=== PATIENT | male | born 1960 | race Hispanic/Latino ===

== ENCOUNTER 2017-10-14 12:26 | Inpatient (IN) | payer MEDICARE ==
[~2017-10-14] VITALS: Ht 172.7 cm; Wt 82.3 kg
[2017-10-14 12:59] LABS: BASOPHILS % (AUTO) 0.4 % (0.0-5.0); EOSINOPHILS % (AUTO) 1.9 % (0.0-8.0); HEMATOCRIT 32.4 % (42-54); LYMPHOCYTES % (AUTO) 33.8 % (21.0-51.0); MEAN CORPUSCULAR HEMOGLOBIN 31.3 pg (27.0-33.0); MEAN CORPUSCULAR HGB CONC 34.8 g/dL (32.0-36.0); MEAN CORPUSCULAR VOLUME 89.9 fL (79-99); MONOCYTES % (AUTO) 7.8 % (3.0-13.0); NEUTROPHILS % (AUTO) 56.1 % (40.0-77.0); PLATELET COUNT (AUTO) 182 K/uL (130-400); RED BLOOD CELL COUNT(AUTO) 3.61 MIL/uL (4.50-6.20); RED CELL DISTRIBUTION WIDTH 14.4 % (11.0-15.5); WHITE BLOOD COUNT (AUTO) 5.6 K/uL (4.8-10.8)
[2017-10-14 13:06] LABS: CREATININE 1.1 mg/dL (0.5-1.5); POTASSIUM 4.9 mmol/L (3.5-5.1)
[2017-10-14 13:11] LABS: ALBUMIN 3.4 g/dL (3.5-5.0); BILIRUBIN,TOTAL 0.4 mg/dL (0.2-1.0); TOTAL PROTEIN, SERUM 7.4 g/dL (6.0-8.3)
[2017-10-14] MEDS ORDERED: ASPIRIN 325 MG TABLET ONE (13:49)
[2017-10-14] MEDS: NITROGLYCERIN 1GM/1 INCH PACKET TD SCH ×2 (14:00→20:46)
[2017-10-14] MEDS ORDERED: MAG HYDROX/AL HYDROX/SIMETH ES 30 ML SUSP UDCUP PO PRN (14:00)
[2017-10-14] MEDS ORDERED: NITROGLYCERIN 0.4 MG SL TAB SL PRN (14:00)
[2017-10-14] MEDS ORDERED: POTASSIUM CHLORIDE 20 MEQ ERTAB PO PRN (14:00)
[2017-10-14] MEDS ORDERED: ACETAMINOPHEN-CODEINE 300/30MG TAB PO PRN ×2 (14:00)
[2017-10-14] MEDS ORDERED: GUAIFENESIN-DM 200/20 MG 10 ML PO PRN (14:00)
[2017-10-14] MEDS ORDERED: POTASSIUM CHLORIDE 20MEQ/100ML 100 ML IV PRN (14:00)
[2017-10-14] MEDS ORDERED: MORPHINE SULFATE 4 MG/1ML SYG IV PRN ×2 (14:00)
[2017-10-14] MEDS ORDERED: LIDOCAINE HCL-MPF 1% 2ML VIAL IVP PRN (14:00)
[2017-10-14] MEDS ORDERED: POTASSIUM CHLORIDE 10% ELIXIR 20 MEQ/15 ML UDCUP PO PRN (14:00)
[2017-10-14] MEDS ORDERED: ONDANSETRON HCL MDV 20ML 2 MG/ML VIAL IV PRN (14:00)
[2017-10-14] MEDS ORDERED: LACTULOSE 20 GM/30 ML UDCUP PO PRN (14:00)
[2017-10-14] MEDS ORDERED: ACETAMINOPHEN 325 MG TAB PO PRN (14:00)
[2017-10-14] MEDS ORDERED: NITROGLYCERIN 1GM/1 INCH PACKET TD ONE (14:19)
[2017-10-14 15:03] LABS: CREATINE KINASE MB 2.3 ng/mL (0.5-3.6); CREATINE KINASE, TOTAL 266 U/L (21-232); MYOGLOBIN 57 ng/mL (10-92); TROPONIN I < 0.04 ng/mL (0.00-0.06)
[2017-10-14 15:36] VITALS: BP 165/89
[2017-10-14] MEDS ORDERED: ROSU10TA27 PO (15:44)
[2017-10-14] MEDS ORDERED: SITA100T12 PO (15:44)
[2017-10-14] MEDS ORDERED: GABA-529 PO (15:44)
[2017-10-14] MEDS ORDERED: ASPI-555 PO (15:44)
[2017-10-14] MEDS ORDERED: METF500T6 PO (15:44)
[2017-10-14] MEDS ORDERED: LORA10TA7 PO (15:44)
[2017-10-14] MEDS ORDERED: VALS1TAB75 PO (15:44)
[2017-10-14] MEDS ORDERED: OMEP20CA10 PO (15:44)
[2017-10-14 16:21] VITALS: BP 190/93
[2017-10-14] MEDS: HYDRALAZINE HCL 20 MG/ML VIAL IV PRN (19:07)
[2017-10-14 19:40] VITALS: BP 139/69
[2017-10-14] MEDS: FAMOTIDINE 20MG TAB 20 MG TAB PO SCH (20:46)
[2017-10-14] MEDS: METOPROLOL TARTRATE 25 MG TAB PO SCH (20:46)
[2017-10-14 23:15] VITALS: BP 133/77
[2017-10-15 00:33] LABS: INR 0.95 (0.85-1.15)
[2017-10-15 00:47] LABS: CREATINE KINASE MB 1.6 ng/mL (0.5-3.6); CREATINE KINASE, TOTAL 84 U/L (21-232); MYOGLOBIN 61 ng/mL (10-92); TROPONIN I < 0.04 ng/mL (0.00-0.06)
[2017-10-15 03:48] VITALS: BP 125/75
[2017-10-15] MEDS: ACETAMINOPHEN 325 MG TAB PO PRN (03:51)
[2017-10-15 04:28] LABS: HEMOGLOBIN A1C 7.1 % (4.0-6.0)
[2017-10-15 04:42] LABS: THYROID STIMULATING HORMONE 4.8 uIU/mL (0.36-3.74)
[2017-10-15] MEDS: NITROGLYCERIN 1GM/1 INCH PACKET TD SCH (06:03)
[2017-10-15] MEDS: INSULIN HUMULIN R 100 UNIT/ML 3ML SQ SCH ×4 (06:03→21:14)
[2017-10-15 07:41] VITALS: BP 123/80
[2017-10-15] MEDS: ENOXAPARIN SODIUM 40 MG/0.4 ML SYRINGE SQ SCH (08:06)
[2017-10-15] MEDS: METOPROLOL TARTRATE 25 MG TAB PO SCH ×2 (08:06→21:12)
[2017-10-15] MEDS: FAMOTIDINE 20MG TAB 20 MG TAB PO SCH ×2 (08:06→21:12)
[2017-10-15] MEDS ORDERED: ASPIRIN 325 MG TABLET PO SCH (09:00)
[2017-10-15 11:15] VITALS: BP 136/79
[2017-10-15] MEDS ORDERED: REGADENOSON 0.4 MG/5 ML PF SYG IVP SCH (13:00)
[2017-10-15 16:57] VITALS: BP 185/92
[2017-10-15] MEDS: HYDRALAZINE HCL 20 MG/ML VIAL IV PRN (17:04)
[2017-10-15 19:44] VITALS: BP 126/66
[2017-10-15] MEDS: GABAPENTIN 100 MG CAPSULE PO SCH (21:12)
[2017-10-15] MEDS: ATORVASTATIN CALCIUM 20 MG TABLET PO SCH (21:13)
[2017-10-15 23:29] VITALS: BP 139/84
[2017-10-16 03:37] VITALS: BP 129/78
[2017-10-16 04:43] LABS: CREATININE 1.1 mg/dL (0.5-1.5)
[2017-10-16 04:48] LABS: HEMATOCRIT 29.9 % (42-54); MEAN CORPUSCULAR HEMOGLOBIN 31.2 pg (27.0-33.0); MEAN CORPUSCULAR HGB CONC 34.5 g/dL (32.0-36.0); MEAN CORPUSCULAR VOLUME 90.4 fL (79-99); PLATELET COUNT (AUTO) 189 K/uL (130-400); RED BLOOD CELL COUNT(AUTO) 3.31 MIL/uL (4.50-6.20); RED CELL DISTRIBUTION WIDTH 14.8 % (11.0-15.5); WHITE BLOOD COUNT (AUTO) 5.9 K/uL (4.8-10.8)
[2017-10-16] MEDS: ACETAMINOPHEN 325 MG TAB PO PRN ×2 (06:37→14:50)
[2017-10-16] MEDS: INSULIN HUMULIN R 100 UNIT/ML 3ML SQ SCH ×4 (06:38→21:58)
[2017-10-16 07:35] VITALS: BP 133/84
[2017-10-16] MEDS: METOPROLOL TARTRATE 25 MG TAB PO SCH ×2 (08:09→21:54)
[2017-10-16] MEDS: LINAGLIPTIN 5 MG TABLET PO SCH (08:09)
[2017-10-16] MEDS: LORATADINE 10 MG TABLET PO SCH (08:09)
[2017-10-16] MEDS: ASPIRIN 81 MG EC TAB PO SCH (08:09)
[2017-10-16] MEDS: HYDROCHLOROTHIAZIDE 25 MG TABLET PO SCH (08:09)
[2017-10-16] MEDS: LOSARTAN 100 MG TABLET PO SCH (08:09)
[2017-10-16] MEDS: FAMOTIDINE 20MG TAB 20 MG TAB PO SCH ×2 (08:09→21:54)
[2017-10-16] MEDS: ENOXAPARIN SODIUM 40 MG/0.4 ML SYRINGE SQ SCH ×2 (08:10→16:28)
[2017-10-16 12:37] VITALS: BP 124/75
[2017-10-16 16:00] VITALS: BP 150/79
[2017-10-16 20:00] VITALS: BP 127/74
[2017-10-16] MEDS: ATORVASTATIN CALCIUM 20 MG TABLET PO SCH (21:54)
[2017-10-16] MEDS: GABAPENTIN 100 MG CAPSULE PO SCH (21:54)
[2017-10-16 23:58] VITALS: BP 143/75
[2017-10-17] VITALS (10 sets, daily range): BP systolic 107–145; BP diastolic 51–87
[2017-10-17] MEDS: INSULIN HUMULIN R 100 UNIT/ML 3ML SQ SCH ×2 (06:17→12:50)
[2017-10-17] MEDS ORDERED: BIVALIRUDIN 250 MG/VIAL IV ONE (07:13)
[2017-10-17] MEDS ORDERED: NITROGLYCERIN 5 MG/ML 10 ML VIAL IV ONE (07:14)
[2017-10-17] MEDS ORDERED: ISOVUE-370 50ML VIAL IV ONE (07:14)
[2017-10-17] MEDS ORDERED: HEPARIN SODIUM 1000UNIT/ML 10ML VIAL ONE (07:14)
[2017-10-17] MEDS ORDERED: IOPAMIDOL-370 100 ML VIAL IV ONE (07:14)
[2017-10-17] MEDS ORDERED: LIDOCAINE HCL-MPF 2% 5ML VIAL ONE (07:25)
[2017-10-17] MEDS ORDERED: LABETALOL HCL 5 MG/ML 20ML VIAL IV ONE (08:25)
[2017-10-17] MEDS ORDERED: SODIUM CHLORIDE 0.9% 1000ML 1,000 ML IV SCH (08:34)
[2017-10-17] MEDS ORDERED: ISOS30TA6 PO (08:43)
[2017-10-17] MEDS ORDERED: METO-391 PO (08:43)
[2017-10-17] MEDS ORDERED: TICA60TA PO (08:43)
[2017-10-17] MEDS ORDERED: NITR0.4T SL (08:43)
[2017-10-17] MEDS ORDERED: ACETAMINOPHEN-CODEINE 300/30MG TAB PO PRN (08:45)
[2017-10-17] MEDS ORDERED: NITROGLYCERIN 0.4 MG SL TAB SL PRN (08:45)
[2017-10-17] MEDS: FAMOTIDINE 20MG TAB 20 MG TAB PO SCH (09:56)
[2017-10-17] MEDS: ASPIRIN 81 MG EC TAB PO SCH (09:56)
[2017-10-17] MEDS: HYDROCHLOROTHIAZIDE 25 MG TABLET PO SCH (09:56)
[2017-10-17] MEDS: LORATADINE 10 MG TABLET PO SCH (09:56)
[2017-10-17] MEDS: LOSARTAN 100 MG TABLET PO SCH (09:56)
[2017-10-17] MEDS: METOPROLOL TARTRATE 25 MG TAB PO SCH (09:56)
[2017-10-17] MEDS: LINAGLIPTIN 5 MG TABLET PO SCH (09:57)
== END 2017-10-17 14:50 | disposition home or self-care (01) | DRG 287 ==
LOC: EDH 12:26 → OBSVTOIN 13:49 → EDHIP 13:49 → 2AH 15:38
PROVIDERS: ADMIT Internal Medicine; ATTEND Internal Medicine
PROC: 4A023N7 Measurement of Cardiac Sampling and Pressure, Left Heart, Percutaneous Approach (ICD-10-PCS; principal; 2017-10-17)
PROC: B2151ZZ Fluoroscopy of Left Heart using Low Osmolar Contrast (ICD-10-PCS; 2017-10-17)
PROC: B2111ZZ Fluoroscopy of Multiple Coronary Arteries using Low Osmolar Contrast (ICD-10-PCS; 2017-10-17)
DX: R07.9 Chest pain, unspecified (principal); E11.65 Type 2 diabetes mellitus with hyperglycemia; I25.10 Atherosclerotic heart disease of native coronary artery without angina pectoris; I25.2 Old myocardial infarction; I10 Essential (primary) hypertension; E78.5 Hyperlipidemia, unspecified; F17.210 Nicotine dependence, cigarettes, uncomplicated; Z79.82 Long term (current) use of aspirin; Z79.84 Long term (current) use of oral hypoglycemic drugs; Z79.899 Other long term (current) drug therapy; Z95.5 Presence of coronary angioplasty implant and graft; Z88.0 Allergy status to penicillin
CPT/HCPCS: 36415; 71045; 78452; 80048; 80053; 80061; 82550; 82553; 82948; 83036; 83874; 84443; 84484; 85025; 85027; 85610; 93005; 93017; 93458; 96374; A9500; C1894; J0360; J0583; J1644; J1650; J1815; J2785; J3490; Q9967

== ENCOUNTER 2017-11-10 16:34 | Emergency (ER) | payer MEDICARE ==
[~2017-11-10 16:34] MED LIST: ASPI-555 PO; GABA-529 PO; ISOS30TA6 PO; LORA10TA7 PO; METF500T6 PO; METO-391 PO; NITR0.4T SL; OMEP20CA10 PO; ROSU10TA27 PO; SITA100T12 PO; TICA60TA PO; VALS1TAB75 PO
[2017-11-10] MEDS ORDERED: IBUPROFEN 600 MG TABLET ONE (17:12)
== END 2017-11-10 17:22 | disposition home or self-care (01) ==
LOC: EDH 16:34
DX: S83.92XA Sprain of unspecified site of left knee, initial encounter (principal); I10 Essential (primary) hypertension; E11.9 Type 2 diabetes mellitus without complications; E78.5 Hyperlipidemia, unspecified; I25.10 Atherosclerotic heart disease of native coronary artery without angina pectoris; Z88.0 Allergy status to penicillin; Z72.0 Tobacco use; W08.XXXA Fall from other furniture, initial encounter; Y93.89 Activity, other specified; Y92.89 Other specified places as the place of occurrence of the external cause; Y99.8 Other external cause status
CPT/HCPCS: 73562

== ENCOUNTER 2018-06-10 13:08 | Emergency (ER) | payer MEDICARE ==
[~2018-06-10 13:08] MED LIST changes: +METF-444 PO; -METF500T6 PO
[2018-06-10 14:05] LABS: BASOPHILS % (AUTO) 0.5 % (0.0-5.0); EOSINOPHILS % (AUTO) 2.4 % (0.0-8.0); LYMPHOCYTES % (AUTO) 30.2 % (21.0-51.0); MEAN CORPUSCULAR HEMOGLOBIN 30.2 pg (27.0-33.0); MEAN CORPUSCULAR HGB CONC 33.1 g/dL (32.0-36.0); MEAN CORPUSCULAR VOLUME 91.1 fL (79-99); MONOCYTES % (AUTO) 6.5 % (3.0-13.0); NEUTROPHILS % (AUTO) 60.4 % (40.0-77.0); PLATELET COUNT (AUTO) 219 K/uL (130-400); RED BLOOD CELL COUNT(AUTO) 2.85 MIL/uL (4.50-6.20); RED CELL DISTRIBUTION WIDTH 14.3 % (11.0-15.5)
[2018-06-10 14:30] LABS: CREATININE 1.2 mg/dL (0.5-1.5); POTASSIUM 4.8 mmol/L (3.5-5.1)
[2018-06-10 14:41] LABS: ALBUMIN 2.8 g/dL (3.5-5.0); BILIRUBIN,TOTAL 0.2 mg/dL (0.2-1.0); TOTAL PROTEIN, SERUM 6.9 g/dL (6.0-8.3)
[2018-06-10] MEDS ORDERED: SODIUM CHLORIDE 0.9% 1000ML 1,000 ML IV ONE (15:08)
[2018-06-10] MEDS ORDERED: LIDOCAINE HCL 1% 20 ML VIAL ONE (15:09)
[2018-06-10] MEDS ORDERED: IOHEXOL-350 50ML VIAL IV ONE (15:28)
[2018-06-10] MEDS ORDERED: CLINDAMYCIN HCL 150 MG CAP PO SCH (17:00)
== END 2018-06-10 17:14 | disposition home or self-care (01) ==
LOC: EDH 13:08
DX: L03.221 Cellulitis of neck (principal); I10 Essential (primary) hypertension; E11.9 Type 2 diabetes mellitus without complications; I25.10 Atherosclerotic heart disease of native coronary artery without angina pectoris; E78.5 Hyperlipidemia, unspecified; Z72.0 Tobacco use
CPT/HCPCS: 36415; 70491; 80053; 83605; 85025; 87040 ×2; 99284; J7030; Q9967

== ENCOUNTER → 2018-06-17 | Outpatient (CLI) | payer MEDICARE ==
[2018-06-17 17:11] VITALS: BP 156/84
== END | disposition home or self-care (01) ==
LOC: WHH 08:28
PROVIDERS: ATTEND Podiatrist Foot & Ankle Surgery
DX: E11.621 Type 2 diabetes mellitus with foot ulcer (principal); L97.522 Non-pressure chronic ulcer of other part of left foot with fat layer exposed; S90.31XD Contusion of right foot, subsequent encounter; I25.10 Atherosclerotic heart disease of native coronary artery without angina pectoris; F32.9 Major depressive disorder, single episode, unspecified; I11.9 Hypertensive heart disease without heart failure; G89.29 Other chronic pain; F17.200 Nicotine dependence, unspecified, uncomplicated; Z88.0 Allergy status to penicillin; X58.XXXD Exposure to other specified factors, subsequent encounter
CPT/HCPCS: 11042; A4649; G0463; L3260

== ENCOUNTER → 2018-07-08 | Outpatient (CLI) | payer MEDICARE ==
[2018-07-08 13:53] VITALS: BP 183/94
== END | disposition home or self-care (01) ==
LOC: WHH 09:20
PROVIDERS: ATTEND Podiatrist Foot & Ankle Surgery
DX: E11.621 Type 2 diabetes mellitus with foot ulcer (principal); L97.522 Non-pressure chronic ulcer of other part of left foot with fat layer exposed; I25.10 Atherosclerotic heart disease of native coronary artery without angina pectoris; I11.9 Hypertensive heart disease without heart failure; E78.5 Hyperlipidemia, unspecified; G89.29 Other chronic pain; F32.9 Major depressive disorder, single episode, unspecified; F17.200 Nicotine dependence, unspecified, uncomplicated; Z88.0 Allergy status to penicillin
CPT/HCPCS: 11042; A4649

== ENCOUNTER → 2018-07-15 | Outpatient (CLI) | payer MEDICARE ==
[2018-07-15 12:57] VITALS: BP 180/87
== END | disposition home or self-care (01) ==
LOC: WHH 09:00
PROVIDERS: ATTEND Podiatrist Foot & Ankle Surgery
DX: E11.621 Type 2 diabetes mellitus with foot ulcer (principal); L97.522 Non-pressure chronic ulcer of other part of left foot with fat layer exposed; I25.10 Atherosclerotic heart disease of native coronary artery without angina pectoris; I11.9 Hypertensive heart disease without heart failure; E78.5 Hyperlipidemia, unspecified; G89.29 Other chronic pain; F32.9 Major depressive disorder, single episode, unspecified; F17.200 Nicotine dependence, unspecified, uncomplicated; Z88.0 Allergy status to penicillin
CPT/HCPCS: 11042; A4649

== ENCOUNTER → 2018-07-22 | Outpatient (CLI) | payer MEDICARE ==
[2018-07-22 09:35] VITALS: BP 159/82
== END | disposition home or self-care (01) ==
LOC: WHH 08:00
PROVIDERS: ATTEND Podiatrist Foot & Ankle Surgery
DX: E11.621 Type 2 diabetes mellitus with foot ulcer (principal); L97.522 Non-pressure chronic ulcer of other part of left foot with fat layer exposed; I25.10 Atherosclerotic heart disease of native coronary artery without angina pectoris; I11.9 Hypertensive heart disease without heart failure; E78.5 Hyperlipidemia, unspecified; G89.29 Other chronic pain; F32.9 Major depressive disorder, single episode, unspecified; F17.200 Nicotine dependence, unspecified, uncomplicated; Z88.0 Allergy status to penicillin
CPT/HCPCS: 11042; A6207

== ENCOUNTER → 2018-07-29 | Outpatient (CLI) | payer MEDICARE ==
[2018-07-29 09:46] VITALS: BP 170/95
== END | disposition home or self-care (01) ==
LOC: WHH 08:00
PROVIDERS: ATTEND Podiatrist Foot & Ankle Surgery
DX: E11.621 Type 2 diabetes mellitus with foot ulcer (principal); L97.522 Non-pressure chronic ulcer of other part of left foot with fat layer exposed; I25.10 Atherosclerotic heart disease of native coronary artery without angina pectoris; I11.9 Hypertensive heart disease without heart failure; E78.5 Hyperlipidemia, unspecified; G89.29 Other chronic pain; E11.42 Type 2 diabetes mellitus with diabetic polyneuropathy; F32.9 Major depressive disorder, single episode, unspecified; F17.200 Nicotine dependence, unspecified, uncomplicated; Z88.0 Allergy status to penicillin
CPT/HCPCS: 11042; A6021

== ENCOUNTER → 2018-08-05 | Outpatient (CLI) | payer MEDICARE ==
[2018-08-05 14:22] VITALS: BP 150/91
== END | disposition home or self-care (01) ==
LOC: WHH 08:00
PROVIDERS: ATTEND Podiatrist Foot & Ankle Surgery
DX: E11.621 Type 2 diabetes mellitus with foot ulcer (principal); L97.522 Non-pressure chronic ulcer of other part of left foot with fat layer exposed; I25.10 Atherosclerotic heart disease of native coronary artery without angina pectoris; E78.5 Hyperlipidemia, unspecified; E11.42 Type 2 diabetes mellitus with diabetic polyneuropathy; I11.9 Hypertensive heart disease without heart failure; G89.29 Other chronic pain; F32.9 Major depressive disorder, single episode, unspecified; F17.200 Nicotine dependence, unspecified, uncomplicated
CPT/HCPCS: 11042; 87070; 87077 ×5; 87186 ×5; A6021

== ENCOUNTER → 2018-08-12 | Outpatient (CLI) | payer MEDICARE ==
[2018-08-12 10:12] LABS: BASOPHILS % (AUTO) 0.6 % (0.0-5.0); EOSINOPHILS % (AUTO) 2.2 % (0.0-8.0); HEMATOCRIT 31.6 % (42-54); LYMPHOCYTES % (AUTO) 37.8 % (21.0-51.0); MEAN CORPUSCULAR HEMOGLOBIN 29.8 pg (27.0-33.0); MEAN CORPUSCULAR HGB CONC 32.8 g/dL (32.0-36.0); MEAN CORPUSCULAR VOLUME 90.9 fL (79-99); MONOCYTES % (AUTO) 7.3 % (3.0-13.0); NEUTROPHILS % (AUTO) 52.1 % (40.0-77.0); PLATELET COUNT (AUTO) 178 K/uL (130-400); RED BLOOD CELL COUNT(AUTO) 3.48 MIL/uL (4.50-6.20); RED CELL DISTRIBUTION WIDTH 16.4 % (11.0-15.5); WHITE BLOOD COUNT (AUTO) 5.1 K/uL (4.8-10.8)
[2018-08-12 10:27] LABS: CREATININE 1.1 mg/dL (0.5-1.5); POTASSIUM 5.8 mmol/L (3.5-5.1)
[2018-08-12 10:29] LABS: ALBUMIN 3.3 g/dL (3.5-5.0); BILIRUBIN,TOTAL 0.3 mg/dL (0.2-1.0); TOTAL PROTEIN, SERUM 7.2 g/dL (6.0-8.3)
[2018-08-12 13:46] VITALS: BP 165/75
== END | disposition home or self-care (01) ==
LOC: WHH 08:00
PROVIDERS: ATTEND Podiatrist Foot & Ankle Surgery
DX: E11.621 Type 2 diabetes mellitus with foot ulcer (principal); L97.522 Non-pressure chronic ulcer of other part of left foot with fat layer exposed; I25.10 Atherosclerotic heart disease of native coronary artery without angina pectoris; E78.5 Hyperlipidemia, unspecified; E11.42 Type 2 diabetes mellitus with diabetic polyneuropathy; I11.9 Hypertensive heart disease without heart failure; G89.29 Other chronic pain; F32.9 Major depressive disorder, single episode, unspecified; F17.200 Nicotine dependence, unspecified, uncomplicated; Z88.0 Allergy status to penicillin
CPT/HCPCS: 11042; 36415; 80053; 85025; A6021

== ENCOUNTER → 2018-08-19 | Outpatient (CLI) | payer MEDICARE ==
[2018-08-19 09:24] VITALS: BP 172/80
== END | disposition home or self-care (01) ==
LOC: WHH 08:00
PROVIDERS: ATTEND Podiatrist Foot & Ankle Surgery
DX: E11.621 Type 2 diabetes mellitus with foot ulcer (principal); L97.522 Non-pressure chronic ulcer of other part of left foot with fat layer exposed; E11.40 Type 2 diabetes mellitus with diabetic neuropathy, unspecified; E78.5 Hyperlipidemia, unspecified; I11.9 Hypertensive heart disease without heart failure; I25.10 Atherosclerotic heart disease of native coronary artery without angina pectoris; G89.29 Other chronic pain; F32.9 Major depressive disorder, single episode, unspecified; F17.200 Nicotine dependence, unspecified, uncomplicated
CPT/HCPCS: 11042; A6021

== ENCOUNTER → 2018-08-26 | Outpatient (CLI) | payer MEDICARE ==
[2018-08-26 12:00] VITALS: BP 175/81
== END | disposition home or self-care (01) ==
LOC: WHH 08:00
PROVIDERS: ATTEND Podiatrist Foot & Ankle Surgery
DX: E11.621 Type 2 diabetes mellitus with foot ulcer (principal); L97.521 Non-pressure chronic ulcer of other part of left foot limited to breakdown of skin; E11.42 Type 2 diabetes mellitus with diabetic polyneuropathy; I25.10 Atherosclerotic heart disease of native coronary artery without angina pectoris; I11.9 Hypertensive heart disease without heart failure; G89.29 Other chronic pain; F32.9 Major depressive disorder, single episode, unspecified; E78.5 Hyperlipidemia, unspecified; F17.200 Nicotine dependence, unspecified, uncomplicated
CPT/HCPCS: A4649; G0463

== ENCOUNTER → 2018-09-02 | Outpatient (CLI) | payer MEDICARE ==
[2018-09-02 08:17] VITALS: BP 156/88
== END | disposition home or self-care (01) ==
LOC: WHH 08:00
PROVIDERS: ATTEND Podiatrist Foot & Ankle Surgery
DX: E11.621 Type 2 diabetes mellitus with foot ulcer (principal); L97.522 Non-pressure chronic ulcer of other part of left foot with fat layer exposed; E11.42 Type 2 diabetes mellitus with diabetic polyneuropathy; I11.9 Hypertensive heart disease without heart failure; I25.10 Atherosclerotic heart disease of native coronary artery without angina pectoris; G89.29 Other chronic pain; E78.5 Hyperlipidemia, unspecified; F17.200 Nicotine dependence, unspecified, uncomplicated; F32.9 Major depressive disorder, single episode, unspecified
CPT/HCPCS: 11042; A4450; A4649

== ENCOUNTER → 2018-09-09 | Outpatient (CLI) | payer MEDICARE ==
[2018-09-09 13:19] VITALS: BP 163/89
== END | disposition home or self-care (01) ==
LOC: WHH 08:00
PROVIDERS: ATTEND Podiatrist Foot & Ankle Surgery
DX: E11.621 Type 2 diabetes mellitus with foot ulcer (principal); L97.522 Non-pressure chronic ulcer of other part of left foot with fat layer exposed; E11.42 Type 2 diabetes mellitus with diabetic polyneuropathy; I11.9 Hypertensive heart disease without heart failure; I25.10 Atherosclerotic heart disease of native coronary artery without angina pectoris; E78.5 Hyperlipidemia, unspecified; G89.29 Other chronic pain; F32.9 Major depressive disorder, single episode, unspecified; F17.200 Nicotine dependence, unspecified, uncomplicated; Z88.0 Allergy status to penicillin
CPT/HCPCS: 11042; A4649

== ENCOUNTER → 2018-09-16 | Outpatient (CLI) | payer MEDICARE ==
[2018-09-16 09:03] VITALS: BP 146/84
== END | disposition home or self-care (01) ==
LOC: WHH 08:00
PROVIDERS: ATTEND Podiatrist Foot & Ankle Surgery
DX: E11.621 Type 2 diabetes mellitus with foot ulcer (principal); L97.521 Non-pressure chronic ulcer of other part of left foot limited to breakdown of skin; E11.42 Type 2 diabetes mellitus with diabetic polyneuropathy; I11.9 Hypertensive heart disease without heart failure; E78.5 Hyperlipidemia, unspecified; I25.10 Atherosclerotic heart disease of native coronary artery without angina pectoris; G89.29 Other chronic pain; F17.200 Nicotine dependence, unspecified, uncomplicated; Z88.0 Allergy status to penicillin
CPT/HCPCS: 97597

== ENCOUNTER → 2018-09-30 | Outpatient (CLI) | payer MEDICARE ==
[2018-09-30 13:48] VITALS: BP 165/87
== END | disposition home or self-care (01) ==
LOC: WHH 08:00
PROVIDERS: ATTEND Podiatrist Foot & Ankle Surgery
DX: E11.621 Type 2 diabetes mellitus with foot ulcer (principal); L97.528 Non-pressure chronic ulcer of other part of left foot with other specified severity; L84 Corns and callosities; E11.42 Type 2 diabetes mellitus with diabetic polyneuropathy; M20.12 Hallux valgus (acquired), left foot; I11.9 Hypertensive heart disease without heart failure; I25.10 Atherosclerotic heart disease of native coronary artery without angina pectoris; E78.5 Hyperlipidemia, unspecified; G89.29 Other chronic pain; F17.200 Nicotine dependence, unspecified, uncomplicated; F32.9 Major depressive disorder, single episode, unspecified
CPT/HCPCS: 11056

== ENCOUNTER 2018-10-26 14:44 | Emergency (ER) | payer MEDICARE ==
[2018-10-26] MEDS ORDERED: DEXAMETHASONE SOD PHOSPHATE 10MG/ML 1ML VIAL ONE (15:34)
[2018-10-26] MEDS ORDERED: DiphenhydrAMINE HCL 50 MG/ML VIAL ONE (15:34)
[2018-10-26] MEDS ORDERED: KETOROLAC TROMETHAMINE 30MG/ML ONE (15:35)
== END 2018-10-26 16:53 | disposition home or self-care (01) ==
LOC: EDH 14:44
DX: R51 Headache (principal); I25.10 Atherosclerotic heart disease of native coronary artery without angina pectoris; E11.9 Type 2 diabetes mellitus without complications; E78.5 Hyperlipidemia, unspecified; I10 Essential (primary) hypertension; Z88.0 Allergy status to penicillin; Z72.0 Tobacco use
CPT/HCPCS: 96374; 96375; 99284; J1100; J1200; J1885

== ENCOUNTER 2020-04-10 12:37 | Emergency (ER) | payer MEDICARE ==
[~2020-04-10 12:37] MED LIST changes: -ASPI-555 PO; +ASPI-556 PO; -OMEP20CA10 PO; +OMEP20CA12 PO; -ROSU10TA27 PO; +ROSU10TA28 PO; -VALS1TAB75 PO; +VALS1TAB76 PO
[2020-04-10] MEDS ORDERED: ASPIRIN 325 MG TABLET ONE (12:48)
[2020-04-10 12:55] LABS: BASOPHILS % (AUTO) 0.6 % (0.0-5.0); EOSINOPHILS % (AUTO) 1.2 % (0.0-8.0); HEMATOCRIT 31.7 % (42-54); MEAN CORPUSCULAR HEMOGLOBIN 31.9 pg (27.0-33.0); MEAN CORPUSCULAR HGB CONC 33.4 g/dL (32.0-36.0); MEAN CORPUSCULAR VOLUME 95.5 fL (79-99); MONOCYTES % (AUTO) 7.3 % (3.0-13.0); NEUTROPHILS % (AUTO) 60.7 % (40.0-77.0); PLATELET COUNT (AUTO) 145 K/uL (130-400); RED BLOOD CELL COUNT(AUTO) 3.32 MIL/uL (4.50-6.20)
[2020-04-10] MEDS ORDERED: LIDOCAINE HCL 2% VISCOUS 15 ML UDCUP ONE (13:13)
[2020-04-10 13:14] LABS: ALBUMIN 3.7 g/dL (3.5-5.0); BILIRUBIN,TOTAL 0.8 mg/dL (0.2-1.0); CREATININE 1.3 mg/dL (0.5-1.5); POTASSIUM 4.9 mmol/L (3.5-5.1); TOTAL PROTEIN, SERUM 7.8 g/dL (6.0-8.3)
[2020-04-10] MEDS ORDERED: MAG HYDROX/AL HYDROX/SIMETH ES 30 ML SUSP UDCUP ONE (13:14)
[2020-04-10 13:31] LABS: B-TYPE NATRIURETIC PEPTIDE 53 pg/mL (0-100)
[2020-04-10 13:52] LABS: INR 0.94 (0.85-1.15); PARTIAL THROMBOPLASTIN TIME 25.9 SEC (26.3-35.5); PROTHROMBIN TIME 10.2 SEC (9.6-11.6)
== END 2020-04-10 16:28 | disposition home or self-care (01) ==
LOC: EDH 12:37
DX: R07.89 Other chest pain (principal); E11.9 Type 2 diabetes mellitus without complications; I10 Essential (primary) hypertension; E78.5 Hyperlipidemia, unspecified; I25.10 Atherosclerotic heart disease of native coronary artery without angina pectoris; Z72.0 Tobacco use; Z88.0 Allergy status to penicillin
CPT/HCPCS: 36415; 71045; 80053; 82550; 83880; 84484; 85025; 85610; 85730; 93005

== ENCOUNTER → 2020-11-15 | Outpatient (CLI) | payer MEDICARE ==
[~2020-11-15] MED LIST changes: -ISOS30TA6 PO; +ISOS30TA92 PO
== END | disposition home or self-care (01) ==
LOC: WHH 08:40
PROVIDERS: ATTEND Podiatrist Foot & Ankle Surgery
DX: E11.621 Type 2 diabetes mellitus with foot ulcer (principal); L97.511 Non-pressure chronic ulcer of other part of right foot limited to breakdown of skin; I10 Essential (primary) hypertension; E78.5 Hyperlipidemia, unspecified; G89.29 Other chronic pain; M54.9 Dorsalgia, unspecified; I25.10 Atherosclerotic heart disease of native coronary artery without angina pectoris; Z72.89 Other problems related to lifestyle
CPT/HCPCS: 97597; A4450; A4649

== ENCOUNTER 2021-01-22 21:35 | Observation (INO) | payer MEDICARE ==
[~2021-01-22] VITALS: Ht 175.3 cm; Wt 80.4 kg
[2021-01-22 22:03] VITALS: BP 150/77
[2021-01-22] MEDS ORDERED: ENOXAPARIN SODIUM 100 MG/1 ML SQ ONE (22:22)
[2021-01-22] MEDS ORDERED: ASPIRIN 325MG TAB ONE (22:22)
[2021-01-22] MEDS ORDERED: NITROGLYCERIN 1GM OINT 1 INCH/1GM TD ONE ×2 (22:23→22:30)
[2021-01-22 22:26] LABS: INR 0.99 (0.85-1.15); PROTHROMBIN TIME 10.8 SEC (9.6-11.6)
[2021-01-22] MEDS ORDERED: 0.9%NACL 1000ML 1,000 ML IV ONE (22:30)
[2021-01-22] MEDS ORDERED: ASPIRIN 325MG TAB PO ONE (22:30)
[2021-01-22] MEDS ORDERED: ENOXAPARIN SODIUM 80 MG/0.8 ML SQ ONE (22:30)
[2021-01-22 22:39] LABS: BASOPHILS % (AUTO) 0.5 % (0.0-5.0); EOSINOPHILS % (AUTO) 2.2 % (0.0-8.0); HEMATOCRIT 28.4 % (42-54); LYMPHOCYTES % (AUTO) 49.1 % (21.0-51.0); MEAN CORPUSCULAR HEMOGLOBIN 31.4 pg (27.0-33.0); MEAN CORPUSCULAR HGB CONC 32.7 g/dL (32.0-36.0); MEAN CORPUSCULAR VOLUME 95.9 fL (79-99); MONOCYTES % (AUTO) 8.2 % (3.0-13.0); NEUTROPHILS % (AUTO) 39.7 % (40.0-77.0); PLATELET COUNT (AUTO) 149 K/uL (130-400); POTASSIUM 4.6 mmol/L (3.5-5.1); RED BLOOD CELL COUNT(AUTO) 2.96 MIL/uL (4.50-6.20); RED CELL DISTRIBUTION WIDTH 13.6 % (11.0-15.5); WHITE BLOOD COUNT (AUTO) 6.3 K/uL (4.8-10.8)
[2021-01-22 22:41] LABS: B-TYPE NATRIURETIC PEPTIDE 146 pg/mL (0-100)
[2021-01-22 22:44] LABS: ALBUMIN 3.5 g/dL (3.5-5.0); BILIRUBIN,TOTAL 0.3 mg/dL (0.2-1.0)
[2021-01-22 23:26] VITALS: BP 124/79
[2021-01-22] MEDS ORDERED: MORPHINE 4 MG SYG IV PRN (23:30)
[2021-01-22] MEDS ORDERED: MORPHINE 2 MG SYG IV PRN (23:30)
[2021-01-22] MEDS ORDERED: NITROGLYCERIN 0.4 MG SL TAB SL PRN (23:30)
[2021-01-23] MEDS ORDERED: HYDROCODONE/ACETAMINOPHEN 5/325 MG TAB PO ONE
[2021-01-23] MEDS ORDERED: CYCLOBENZAPRINE HCL 10 MG TABLET PO ONE
[2021-01-23 00:02] LABS: AMPHET/METH SCREEN,URINE NEGATIVE (NEGATIVE); BARBITURATE SCREEN, URINE NEGATIVE (NEGATIVE); BENZODIAZEPINES SCREEN,URINE NEGATIVE (NEGATIVE); CANNABINOID SCREEN,URINE NEGATIVE (NEGATIVE); COCAINE SCREEN,URINE NEGATIVE (NEGATIVE); OPIATE SCREEN,URINE NEGATIVE (NEGATIVE); PHENCYCLIDINE SCREEN,URINE NEGATIVE (NEGATIVE)
[2021-01-23 00:17] LABS: CHOLESTEROL 103 mg/dL (<200); CREATINE KINASE, TOTAL 160 U/L (21-232); HDL CHOLESTEROL 52 mg/dL (29-71); LDL DIRECT 43 mg/dL (0-99); MYOGLOBIN 82 ng/mL (10-92); THYROID STIMULATING HORMONE 5.02 uIU/mL (0.36-3.74); TRIGLYCERIDES 87 mg/dL (30-200); TROPONIN I < 0.04 ng/mL (0.00-0.06)
[2021-01-23 00:53] LABS: HEMOGLOBIN A1C 6.8 % (4.0-6.0)
[2021-01-23 02:54] VITALS: BP 132/63
[2021-01-23 03:55] VITALS: BP 131/79
[2021-01-23 06:42] LABS: BASOPHILS % (AUTO) 0.5 % (0.0-5.0); HEMATOCRIT 26.3 % (42-54); LYMPHOCYTES % (AUTO) 46.3 % (21.0-51.0); MEAN CORPUSCULAR HEMOGLOBIN 31.7 pg (27.0-33.0); MEAN CORPUSCULAR HGB CONC 32.3 g/dL (32.0-36.0); MEAN CORPUSCULAR VOLUME 98.1 fL (79-99); MONOCYTES % (AUTO) 9.2 % (3.0-13.0); NEUTROPHILS % (AUTO) 40.8 % (40.0-77.0); PLATELET COUNT (AUTO) 117 K/uL (130-400); RED BLOOD CELL COUNT(AUTO) 2.68 MIL/uL (4.50-6.20); RED CELL DISTRIBUTION WIDTH 13.9 % (11.0-15.5)
[2021-01-23 07:01] LABS: MAGNESIUM 1.6 mg/dL (1.80-2.40); PHOSPHORUS 2.7 mg/dL (2.5-4.9); POTASSIUM 5.2 mmol/L (3.5-5.1)
[2021-01-23 07:26] LABS: CREATINE KINASE, TOTAL 132 U/L (21-232); MYOGLOBIN 87 ng/mL (10-92); TROPONIN I < 0.04 ng/mL (0.00-0.06)
[2021-01-23] MEDS: INSULIN HUMULIN R 100 UNIT/ML 3ML SQ SCH ×3 (07:30→16:30)
[2021-01-23 07:45] VITALS: BP 152/88
[2021-01-23] MEDS ORDERED: FAMOTIDINE 20MG VIAL IV SCH (09:00)
[2021-01-23] MEDS ORDERED: ENOXAPARIN SODIUM 40 MG/0.4 ML SYRINGE SQ SCH (09:00)
[2021-01-23] MEDS ORDERED: LISINOPRIL 10 MG TABLET PO SCH (09:00)
[2021-01-23] MEDS ORDERED: FAMOTIDINE 20MG TAB ONE (09:49)
[2021-01-23] MEDS: CARVEDILOL 3.125 MG TABLET PO SCH ×2 (10:22→18:21)
[2021-01-23 11:42] VITALS: BP 174/88
[2021-01-23] MEDS ORDERED: ASPIRIN 81MG CHEW TAB PO ONE (12:00)
[2021-01-23] MEDS ORDERED: HYDROCHLOROTHIAZIDE 25 MG TABLET ONE (12:30)
[2021-01-23] MEDS ORDERED: HYDROCHLOROTHIAZIDE 25 MG TABLET PO SCH (12:30)
[2021-01-23] MEDS ORDERED: MAGNESIUM 2GM PREMIX 50ML 50 ML IV SCH (12:30)
[2021-01-23] MEDS ORDERED: LOSA100T58 PO (12:41)
[2021-01-23] MEDS ORDERED: METO25TA6 PO (12:41)
[2021-01-23 15:14] VITALS: BP 174/84
[2021-01-23 15:46] LABS: CREATINE KINASE, TOTAL 114 U/L (21-232); TROPONIN I < 0.04 ng/mL (0.00-0.06)
[2021-01-23 16:05] LABS: MYOGLOBIN 69 ng/mL (10-92)
[2021-01-23 18:21] VITALS: BP 174/84
[2021-01-23] MEDS ORDERED: GABAPENTIN 100 MG CAPSULE PO SCH (21:00)
[2021-01-23] MEDS ORDERED: FAMOTIDINE 20MG TAB PO SCH (21:00)
[2021-01-24] MEDS ORDERED: HYDROCHLOROTHIAZIDE 25 MG TABLET PO SCH (09:00)
[2021-01-24] MEDS ORDERED: ASPIRIN 81MG CHEW TAB PO SCH (09:00)
[2021-01-24] MEDS ORDERED: LOSARTAN 100 MG TABLET PO SCH (09:00)
== END 2021-01-23 19:30 | disposition home or self-care (01) ==
LOC: EDH 21:35 → EDHIP 23:26 → 4BH 01-23 03:56
PROVIDERS: ADMIT Internal Medicine; ATTEND Internal Medicine
DX: I24.9 Acute ischemic heart disease, unspecified (principal); R07.89 Other chest pain; I10 Essential (primary) hypertension; D64.9 Anemia, unspecified; E11.65 Type 2 diabetes mellitus with hyperglycemia; G89.29 Other chronic pain; M54.9 Dorsalgia, unspecified; E78.00 Pure hypercholesterolemia, unspecified; E78.5 Hyperlipidemia, unspecified; I25.10 Atherosclerotic heart disease of native coronary artery without angina pectoris; I25.2 Old myocardial infarction; Z95.1 Presence of aortocoronary bypass graft; Z79.84 Long term (current) use of oral hypoglycemic drugs; Z79.82 Long term (current) use of aspirin; Z87.891 Personal history of nicotine dependence; Z95.5 Presence of coronary angioplasty implant and graft; Z87.828 Personal history of other (healed) physical injury and trauma; X50.0XXA Overexertion from strenuous movement or load, initial encounter; Y92.89 Other specified places as the place of occurrence of the external cause; Y93.89 Activity, other specified; Y99.8 Other external cause status
CPT/HCPCS: 36415 ×2; 71045; 80048; 80053; 80061 ×2; 80305; 82550 ×3; 82948 ×3; 83036; 83735; 83874 ×3; 83880; 84100; 84443; 84484 ×4; 85025 ×2; 85610; 93005 ×4; 96360; 96361; 96372 ×2; 99285; G0378 ×19; J1650 ×2; J3475

== ENCOUNTER 2021-11-01 07:56 | Emergency (ER) | payer MEDICARE ==
[~2021-11-01] VITALS: Ht 175.3 cm; Wt 81.6 kg
[~2021-11-01 07:56] MED LIST changes: -ISOS30TA92 PO; -LORA10TA7 PO; -METO-391 PO; -SITA100T12 PO; -TICA60TA PO
[2021-11-01 07:58] VITALS: BP 138/82
[2021-11-01] MEDS ORDERED: KETOROLAC 60 MG VIAL (30MG/ML) IM SCH (08:30)
[2021-11-01] MEDS ORDERED: DICL50TA9 PO (08:41)
[2021-11-01] MEDS ORDERED: TIZA4TAB12 PO (08:41)
[2021-11-01] MEDS ORDERED: LIDOP TD (08:41)
== END 2021-11-01 08:55 | disposition home or self-care (01) ==
LOC: EDH 07:56
DX: S13.9XXA Sprain of joints and ligaments of unspecified parts of neck, initial encounter (principal); M62.838 Other muscle spasm; I11.0 Hypertensive heart disease with heart failure; E11.9 Type 2 diabetes mellitus without complications; Z95.0 Presence of cardiac pacemaker; Z88.0 Allergy status to penicillin; Z88.8 Allergy status to other drugs, medicaments and biological substances; Z79.82 Long term (current) use of aspirin; Z79.899 Other long term (current) drug therapy; W01.0XXA Fall on same level from slipping, tripping and stumbling without subsequent striking against object, initial encounter; Y93.89 Activity, other specified; Y92.89 Other specified places as the place of occurrence of the external cause; Y99.0 Civilian activity done for income or pay
CPT/HCPCS: 96372; 99283; J1885

== ENCOUNTER 2024-02-20 00:05 | Emergency (ER) | payer MEDICARE ==
[~2024-02-20] VITALS: Ht 175.3 cm; Wt 78.9 kg
[~2024-02-20 00:05] MED LIST changes: +DICL50TA9 PO; +LIDOP TD; -ROSU10TA28 PO; +ROSU10TA72 PO; +TIZA4TAB12 PO
[2024-02-20 00:57] LABS: BASOPHILS # (AUTO) 0.03 K/uL (0.00-0.20); BASOPHILS % (AUTO) 0.7 % (0.0-5.0); EOSINOPHILS # (AUTO) 0.08 K/uL (0.00-0.70); EOSINOPHILS % (AUTO) 1.9 % (0.0-8.0); HEMATOCRIT 30.5 % (42-54); IMMATURE GRANULOCYTE ABSOLUTE 0.01 K/uL (0-1); LYMPHOCYTES # (AUTO) 1.6 K/uL (1.0-4.8); MEAN CORPUSCULAR HGB CONC 34.1 g/dL (32.0-36.0); MEAN CORPUSCULAR VOLUME 96.8 fL (79-99); MONOCYTES # (AUTO) 0.4 K/uL (0.1-1.0); MONOCYTES % (AUTO) 10.7 % (3.0-13.0); NEUTROPHILS % (AUTO) 48.5 % (40.0-77.0); PLATELET COUNT (AUTO) 162 K/uL (130-400); RED BLOOD CELL COUNT(AUTO) 3.15 MIL/uL (4.50-6.20); RED CELL DISTRIBUTION WIDTH 13.8 % (11.0-15.5); WHITE BLOOD COUNT (AUTO) 4.1 K/uL (4.8-10.8)
[2024-02-20 01:06] LABS: CREATININE 1.2 mg/dL (0.5-1.3); POTASSIUM 4.6 mmol/L (3.5-5.1)
[2024-02-20 01:08] LABS: INR 0.94 (0.85-1.15); PROTHROMBIN TIME 10.2 SEC (9.6-11.6)
[2024-02-20 01:09] LABS: PARTIAL THROMBOPLASTIN TIME 22.9 SEC (26.3-35.5)
[2024-02-20 01:28] LABS: RAPID GROUP A STREP negative (NEGATIVE)
[2024-02-20 01:31] LABS: SARS-CoV-2, RNA, NAAT NEGATIVE SARS CoV-2 (NEGATIVE)
[2024-02-20 01:35] LABS: B-TYPE NATRIURETIC PEPTIDE 37 pg/mL (0-100)
[2024-02-20 01:36] LABS: INFLUENZA TYPE A Negative For Type A (NEGATIVE); INFLUENZA TYPE B Negative For Type B (NEGATIVE)
[2024-02-20] MEDS: PANTOPRAZOLE 40 MG/VIAL IVP ONE (01:49)
[2024-02-20] MEDS: MORPHINE 4 MG SYG IVP ONE (01:49)
[2024-02-20] MEDS: ONDANSETRON 4MG INJ IVP ONE (01:50)
[2024-02-20] MEDS: ASPIRIN 325MG TAB PO ONE (01:50)
[2024-02-20 02:11] LABS: APPEARANCE,URINE CLEAR (CLEAR); BILIRUBIN,URINE NEGATIVE (NEGATIVE); COLOR,URINE COLORLESS (YELLOW); GLUCOSE, URINE (UA) NEGATIVE (NEGATIVE); KETONES,URINE NEGATIVE (NEGATIVE); LEUKOCYTE ESTERASE ,URINE NEGATIVE Leu/uL (NEGATIVE); NITRATE,URINE NEGATIVE (NEGATIVE); OCCULT BLOOD,URINE NEGATIVE (NEGATIVE); PH,URINE 5.5 (5.0-8.0); PROTEIN,URINE 20 mg/dL (NEGATIVE); UROBILINOGEN,URINE 0.2 mg/dL (0.2-1.0)
[2024-02-20 02:16] LABS: ADD UA MICROSCOPIC YES
[2024-02-20 02:18] LABS: RBC,URINE 0-1 /HPF (0-1); SQUAMOUS EPITHELIAL CELL,UR RARE /HPF (0-2)
[2024-02-20] MEDS ORDERED: PANT40TA PO (02:39)
[2024-02-20 02:44] VITALS: BP 142/66; PULSE 88; RESP 18; O2SAT 99
== END 2024-02-20 02:52 | disposition home or self-care (01) ==
LOC: EDH 00:05
DX: R07.89 Other chest pain (principal); K21.9 Gastro-esophageal reflux disease without esophagitis; F10.10 Alcohol abuse, uncomplicated; F17.290 Nicotine dependence, other tobacco product, uncomplicated; E11.9 Type 2 diabetes mellitus without complications; I10 Essential (primary) hypertension; Z79.82 Long term (current) use of aspirin; Z79.899 Other long term (current) drug therapy; Z88.0 Allergy status to penicillin; Z95.5 Presence of coronary angioplasty implant and graft; Z20.822 Contact with and (suspected) exposure to COVID-19
CPT/HCPCS: 99285; 96374; 96375; 71045; 87635; 82550; 84484; 80048; 83880; 85025; 85610; 85730; 87880; 87804 ×2; 82948; 81001; 36415; 93005; J2405; J2270; J2470

== ENCOUNTER 2024-06-28 15:12 | Emergency (ER) | payer MEDICARE ==
[~2024-06-28] VITALS: Ht 175.3 cm; Wt 79.4 kg
[~2024-06-28 15:12] MED LIST changes: +PANT40TA PO
--- NOTE | 2024-06-28 15:24 | ERN ---
ED Note History of Present Illness Stated Complaint: BLISTER TOE Chief Complaint: Wound Check Time Seen by MD: 15:21 Dictation: PATIENT IS A 64-YEAR-OLD MALE HERE WITH A BLISTER TO THE PLANTAR RIGHT GREAT TOE ONSET SEVERAL DAYS AGO. NO FEVER NO CHILLS NO NAUSEA VOMITING. STATES HE HAS A DIABETIC, BLOOD SUGAR TODAY WAS IN THE 130S. NO FEVER NO CHILLS Allergies: Coded Allergies: Penicillins (Verified Allergy, Unknown, 10/14/17) Home Meds Active Scripts Clindamycin HCl (Clindamycin HCl) 300 Mg Capsule, 1 CAP PO QID for 10 Days, #40 CAP 0 Refills Prov:SOCRATES HARRIS NP 06/28/24 Pantoprazole Sodium (Protonix) 40 Mg Tablet., 40 MG PO DAILYDINNER, #30 TAB Prov:GUMARO RUIZ MD 02/20/24 Lidocaine (Lidoderm Patch 5%) 1 Patch Patch, 1 PATCH TD DAILY, #15 ADH.PATCH 0 Refills Prov:JESENIA JAMIL MD 11/01/21 Tizanidine HCl (Zanaflex) 4 Mg Tablet, 4 MG PO TIDP PRN for MUSCLE SPASMS, #15 TAB 0 Refills Prov:JESENIA JAMIL MD 11/01/21 Diclofenac Sodium (Diclofenac Sodium) 50 Mg Tablet.dr, 50 MG PO TIDP PRN for SEVERE PAIN (7-10), #15 TAB 0 Refills Prov:JESENIA JAMIL MD 11/01/21 Nitroglycerin (Nitrostat) 0.4 Mg Tab.subl, 0.4 MG SL DIRECTED, #30 TAB.SL 3 Refills USE Q 5MINUTES X 3 PRN CHEST PAIN Prov:EMIL SALDANA MD 10/17/17 Reported Medications Omeprazole (Omeprazole) 20 Mg Capsule.dr, 40 MG PO DAILY, CAP 10/14/17 Aspirin (Aspir 81) 81 Mg Tablet.dr, 81 MG PO DAILY, TAB 10/14/17 Valsartan/Hydrochlorothiazide (Valsartan-Hctz 160-12.5 mg Tab) 1 Each Tablet, 1 TAB PO DAILY 10/14/17 Rosuvastatin Calcium (Rosuvastatin Calcium) 10 Mg Tablet, 10 MG PO HS 10/14/17 Gabapentin (Gabapentin) 100 Mg Capsule, 100 MG PO HS 10/14/17 Metformin HCl (Metformin HCl) 500 Mg Tablet, 500 MG PO BIDMEALS, TAB 10/14/17 Past Medical History Past Medical History: Diabetes-Type II, Hypertension Additional Past Medical Hx: SPINE Surgical History: None Surgical History Other: Cardiac Stents x 2 Family History: Negative Social History: Negative, Other RN Note Reviewed/Agreed w/PFSH: Yes Review of System Dictation CONSTITUTIONAL: NEGATIVE EXCEPT FOR HPI HEAD/FACE: NEGATIVE EXCEPT FOR HPI EENT: NEGATIVE EXCEPT FOR HPI RESPIRATORY: NEGATIVE EXCEPT FOR HPI GASTROINTESTINAL/ABDOMINAL: NEGATIVE EXCEPT FOR HPI GENITOURINARY: NEGATIVE EXCEPT FOR HPI MUSCULOSKELETAL: NEGATIVE EXCEPT FOR HPI RIGHT GREAT TOE BLISTER PLANTAR INTEGUMENTARY: NEGATIVE EXCEPT FOR HPI NEUROLOGICAL/PSYCH: NEGATIVE EXCEPT FOR HPI HEMATOLOGIC/LYMPHATIC: NEGATIVE EXCEPT FOR HPI ALL SYSTEMS NEGATIVE, EXCEPT NOTED ABOVE. 13 POINT REVIEW OF SYSTEMS ASSESSED AND ALL NEGATIVE EXCEPT FOR ABOVE. Initial Vital Sign VS Vital Signs Date Time Temp Pulse Resp B/P (MAP) Pulse Ox O2 Delivery O2 Flow Rate FiO2 06/28/24 15:14 98.8 89 16 139/69 99 Room Air 0 06/28/24 15:21 21 Physical Exam Dictation VITAL SIGNS REVIEWED GENERAL APPEARANCE: ALERT, ORIENTED X 3, NO ACUTE DISTRESS, WELL DEVELOPED, NOURISHED. HEAD AND FACE: NON-TRAUMATIC. EYES: PERRL, PINK CONJUNCTIVAS, EYELID NO TRAUMA, ANTERIOR CHAMBER WITH ARCUS SENILIS. EARS: PINNAS INTACT AND NO SIGNS OF TRAUMA OR ERYTHEMA EAR CANALS CLEAR AND NO DISCHARGE TM NO ERYTHEMA NOSE: NO DISCHARGE, NO BLEEDING. OROPHARYNX: MOUTH NORMAL, TONGUE PINK, PHARYNX CLEAR,NO ERYTHEMA, TONSILS NO EXUDATES, NO ABSCESSES NOTED, MUCOUS MEMBRANE MOIST NECK: SUPPLE, NON-TENDER, NO THYROMEGALY, NO MASSES, NO JVD, NO BRUITS BREAST:DEFERRED CHEST:NO TENDERNESS, NO CREPITUS, NO PARADOXICAL MOVEMENT, NO RETRACTIONS LUNGS:CLEAR, WELL-VENTILATED, SYMMETRIC, NO RALES, NO WHEEZING, NO RHONCHI, NO STRIDOR, GOOD BREATH SOUNDS BILATERALLY HEART: REGULAR RATE, REGULAR RHYTHM, NO MURMUR, NO GALLOPS VASCULAR: NO PERIPHERAL EDEMA, ABDOMEN: SOFT, POSITIVE BOWEL SOUNDS, NONDISTENDED, NO GUARDING, NONTENDER, NO REBOUND, NO MASSES NO HEPATOMEGALY, NO SPLENOMEGALY, NO INIGUEZ'S SIGN, NO HERNIAS. RECTAL: DEFERRED GENITAL: DEFERRED NEUROLOGICAL: NORMAL SPEECH, MOTOR FUNCTION INTACT, SENSORY FUNCTION INTACT MUSCULOSKELETAL: NECK NONTENDER, FULL RANGE OF MOTION, BACK NONTENDER, FULL RANGE OF MOTION, EXTREMITIES: NONTENDER, FULL RANGE OF MOTION SKIN: COLOR PINK, DRY, PATIENT HAS A AN INTACT BLISTER TO THE PLANTAR ASPECT OF THE DISTAL RIGHT 1ST TOE SKIN INTACT LYMPHATIC: DEFERRED Results (Laboratory/Radiology) Laboratory/Radiology FOOT COMP 3+VWS RT REASON: ULCER TO RIGHT GREAT TOE PLANTAR TECHNIQUE: 3 views were obtained. FINDINGS: There is some soft tissue swelling adjacent to the first toe. There are no fractures. There are is no evidence of osteomyelitis or gas forming infection. Small wire fragment is again seen in the soft tissues of the third toe distally, unchanged since 01/02/2017. IMPRESSION: 1. Soft tissue swelling. 2. No evidence of osteomyelitis or gas forming infection. Labs Reviewed?: Yes ED Course ED Course 1806, PATIENT WAS INSTRUCTED THAT THERE WAS NO OSTEOMYELITIS CELLULITIS. HE DOES HAVE A BLISTER THAT WARRANTS BEING SEEN BY HIS PRIMARY CARE DOCTOR IN NEXT 2-3 DAYS I WILL START CLINDAMYCIN,, PATIENT WAS STRONGLY ADVISED TO STOP WEARING TIGHT-FITTING TENNIS SHOES UNTIL CLEARED BY HIS DOCTOR. Medical Decision Making MDM MDM: DIFFERENTIAL DIAGNOSIS: CELLULITIS/BLISTER/OSTEOMYELITIS/UNCONTROLLED DIABETES/SEPSIS RATIONALE: TESTS CONSIDERED AND ORDERED SECONDARY TO SHARED DECISION MAKING INCLUDE: RADIOLOGY/LABS PREVIOUS OUTSIDE RECORDS REVIEWED: OLD ER VISITS. RISK OF COMPLICATION AND/OR MORBIDITY OR MORTALITY OF PATIENT MANAGEMENT: NONE NONE MEDICATIONS-PER MEDICATION RECONCILIATION NEED FOR HOSPITALIZATION: PATIENT DOES NOT MEET CRITERIA FOR HOSPITALIZATION. NO NEED FOR EMERGENCY MAJOR/MINOR SURGERY: NO THERE ARE NO SOCIAL CONCERNS WITH THIS PATIENT. PRESCRIPTION DRUG MANAGEMENT CLINDAMYCIN PRESCRIPTIONS WILL INCLUDE SYMPTOMATIC CARE PATIENT'S PRIOR EXTERNAL MEDICAL RECORDS FROM OTHER ER VISITS WERE REVIEWED BY ME INDICATED. PRIOR TESTING AND RESULTS FROM PREVIOUS VISITS WERE REVIEWED. PRIOR TESTS WERE TAKEN INTO ACCOUNT WITH MEDICAL DECISION MAKING AND RESOURCE UTILIZATION, INDEPENDENT HISTORIAN/HISTORIANS WERE USED TO OBTAIN COMPLETE MEDICAL HISTORY. I INDEPENDENTLY INTERPRETED THE TEST THAT WERE PERFORMED, RESULTS WERE REVIEWED BY ME AND CONSIDERED FINDINGS ON RADIOLOGY IF ORDERED. MEDICAL MANAGEMENT AND EXAMINATION INTERPRETATION DISCUSSIONS WERE HAD BY ME WITH OTHER QUALIFIED HEALTHCARE PROFESSIONALS INDICATED FOR THE PATIENT'S CARE. DX & DISP Disposition: Discharge Departure Impression: Primary Impression: Blister of great toe of right foot Additional Impression: Uncontrolled diabetes mellitus Condition: Stable Scripts Clindamycin HCl (Clindamycin HCl) 300 Mg Capsule 1 CAP PO QID for 10 Days, #40 CAP 0 Refills Prov: SOCRATES HARRIS NP 06/28/24 Additional Instructions: FOLLOW-UP WITH PRIMARY CARE PROVIDER IN 1 TO 2 DAYS. TAKE MEDICATIONS DIRECTED HERE IN THE EMERGENCY ROOM. OKAY TO CONTINUE HOME MEDICATIONS UNLESS OTHERWISE DISCUSSED DURING YOUR VISIT IN THE EMERGENCY ROOM TODAY. RETURN TO YOUR NEAREST EMERGENCY ROOM IF SYMPTOMS WORSEN OR IF THERE IS NO IMPROVEMENT. CALL 911 IF YOU NEED IMMEDIATE ASSISTANCE. TAKE TYLENOL OR MOTRIN GSOE-[id number] NEEDED AND IF NO CONTRAINDICATIONS ARE PRESENT. INCREASE ORAL HYDRATION. A WOUND CULTURE OR URINE CULTURE WAS ORDERED HERE IN THE EMERGENCY ROOM DEPARTMENT PLEASE FOLLOW-UP WITH PRIMARY CARE PROVIDER AND ADVISE THEM TO GET REPEAT PORTS FROM OUR FACILITY. IF YOU HAD ANY RUBENS WRAP/SPLINTS THAT WERE APPLIED HERE, PLEASE DO NOT REMOVE THEM UNTIL YOU SEE YOUR PRIMARY CARE OR SPECIALTY. NO TIGHT-FITTING SHOES. TAKE ANTIBIOTICS DIRECTED UNTIL GONE. , SEE YOUR PRIMARY CARE DOCTOR FOR FOLLOW UP IN 1-2 DAYS. Referrals: GEORGIA PHILILPS MD (PCP) Time of Disposition: 18:10 I have reviewed the case, and I agree with, Diagnosis and Plan I performed this substantive portion of this visit. I have reviewed and personally made and approve the management plan that is documented in the note by myself or the JOHNSON. I acknowledge full responsibility for the patient's management plan. SOCRATES HARRIS NP Jun 28, 2024 15:24 MIGUEL HARRELL MD Jul 04, 2024 15:57
--- NOTE | 2024-06-28 16:33 | HMCIMG ---
FOOT COMP 3+VWS RT REASON: ULCER TO RIGHT GREAT TOE PLANTAR TECHNIQUE: 3 views were obtained. FINDINGS: There is some soft tissue swelling adjacent to the first toe. There are no fractures. There are is no evidence of osteomyelitis or gas forming infection. Small wire fragment is again seen in the soft tissues of the third toe distally, unchanged since 01/02/2017. IMPRESSION: 1. Soft tissue swelling. 2. No evidence of osteomyelitis or gas forming infection.
[2024-06-28 16:47] LABS: BASOPHILS # (AUTO) 0.03 K/uL (0.00-0.20); BASOPHILS % (AUTO) 0.4 % (0.0-5.0); EOSINOPHILS # (AUTO) 0.09 K/uL (0.00-0.70); EOSINOPHILS % (AUTO) 1.2 % (0.0-8.0); HEMATOCRIT 32.8 % (42-54); IMMATURE GRANULOCYTE ABSOLUTE 0.02 K/uL (0-1); LYMPHOCYTES # (AUTO) 1.7 K/uL (1.0-4.8); LYMPHOCYTES % (AUTO) 22.8 % (21.0-51.0); MEAN CORPUSCULAR HEMOGLOBIN 32.6 pg (27.0-33.0); MEAN CORPUSCULAR HGB CONC 33.5 g/dL (32.0-36.0); MEAN CORPUSCULAR VOLUME 97.3 fL (79-99); MONOCYTES # (AUTO) 0.4 K/uL (0.1-1.0); MONOCYTES % (AUTO) 5.8 % (3.0-13.0); NEUTROPHILS # (AUTO) 5.2 K/uL (1.8-7.7); NEUTROPHILS % (AUTO) 69.5 % (40.0-77.0); PLATELET COUNT (AUTO) 220 K/uL (130-400); RED BLOOD CELL COUNT(AUTO) 3.37 MIL/uL (4.50-6.20); RED CELL DISTRIBUTION WIDTH 12.6 % (11.0-15.5); WHITE BLOOD COUNT (AUTO) 7.4 K/uL (4.8-10.8)
[2024-06-28 16:59] LABS: CREATININE 1.3 mg/dL (0.5-1.3); POTASSIUM 4.8 mmol/L (3.5-5.1)
[2024-06-28 17:29] VITALS: BP 139/69; PULSE 89; RESP 16; TEMP 98.8; O2SAT 99
[2024-06-28] MEDS ORDERED: CLIN-141 PO (18:11)
[2024-06-28] MEDS: CLINDAMYCIN 150 MG CAP PO ONE (19:02)
== END 2024-06-28 19:05 | disposition home or self-care (01) ==
LOC: EDH 15:12
DX: S90.421A Blister (nonthermal), right great toe, initial encounter (principal); E11.65 Type 2 diabetes mellitus with hyperglycemia; I10 Essential (primary) hypertension; Z79.82 Long term (current) use of aspirin; Z79.899 Other long term (current) drug therapy; Z88.0 Allergy status to penicillin; Z95.5 Presence of coronary angioplasty implant and graft; X58.XXXA Exposure to other specified factors, initial encounter; Y93.89 Activity, other specified; Y92.89 Other specified places as the place of occurrence of the external cause; Y99.8 Other external cause status
CPT/HCPCS: 36415; 73630; 80048; 83605; 85025; 87040; 99284